=== PATIENT | male | born 1980 | race Caucasian/White ===

== ENCOUNTER 2017-05-10 16:52 | Emergency (ER) | payer SELFPAY ==
[2017-05-10 18:38] LABS: BILIRUBIN NEGATIVE (NEGATIVE); BLOOD NEGATIVE Ery/uL (NEGATIVE); CLARITY CLEAR (CLEAR); COLOR YELLOW (YELLOW); GLUCOSE (U) NORMAL (NORMAL); KETONE (U) NEGATIVE (NEGATIVE); LEUKOCYTES NEGATIVE Leu/uL (NEGATIVE); NITRITE NEGATIVE (NEGATIVE); PROTEIN 1+ mg/dL (NEGATIVE); UROBILINOGEN 0.2 mg/dL (0.2-1.0)
[2017-05-10 18:51] LABS: BASOPHIL 0.1 % (0-2); EOSINOPHIL 1.6 % (0-5); HCT 40.5 % (42.0-52.0); HGB 14.3 g/dl (13.2-18.0); LYMPHOCYTE 25.7 % (15-48); MCH 32.1 pg (25.0-31.0); MCHC 35.3 g/dL (32.0-36.0); MCV 90.8 fL (78.0-100.0); MONOCYTE 3.4 % (0-12); MPV 9.8 fL (6.0-9.5); NEUTROPHIL 69.2 % (41-80); PLT 223 K/uL (150-400); RBC 4.46 M/uL (4.70-6.00); RDW 12.8 % (11.5-14.0); WBC 6.8 K/uL (4.0-10.5)
[2017-05-10 19:09] LABS: ALBUMIN 4.2 g/dL (3.5-5.0); BILIRUBIN - TOTAL 0.2 mg/dL (0.1-1.0); CREATININE 0.9 mg/dL (0.7-1.2); GLOBULIN (CALCULATION) 2.5 g/dL (2.2-4.2); POTASSIUM 4.3 mmol/L (3.5-5.1); TOTAL PROTEIN 6.7 g/dL (6.4-8.3)
== END 2017-05-10 19:55 | disposition home or self-care (01) ==
LOC: FER 16:52
PROVIDERS: Nurse Practitioner Family
DX: R53.1 Weakness (principal); E27.1 Primary adrenocortical insufficiency; E03.9 Hypothyroidism, unspecified; F17.210 Nicotine dependence, cigarettes, uncomplicated; Z88.5 Allergy status to narcotic agent; Z91.048 Other nonmedicinal substance allergy status; Z79.899 Other long term (current) drug therapy
CPT/HCPCS: 36415; 80053; 81003; 85025; J1100